=== PATIENT | female | born 1950 | race African-American/Black ===

== ENCOUNTER 2017-01-29 10:22 | Inpatient (IN) | payer OTHER ==
[~2017-01-29] VITALS: Ht 157.5 cm; Wt 68.7 kg
[2017-01-29] MEDS ORDERED: MAGNESIUM 2 G PREMIX 50 ML IV STA (10:28)
[2017-01-29] MEDS ORDERED: IPRATROPIUM BROMIDE (0.02%) 0.5MG/2.5ML NEB HHN STA (10:28)
[2017-01-29] MEDS ORDERED: ALBUTEROL (0.083%) 2.5MG/3ML NEB HHN STA (10:28)
[2017-01-29] MEDS ORDERED: METHYLPREDNISOLONE SOD SUCC 125 MG/2 ML VIAL IV STA (10:28)
[2017-01-29] MEDS ORDERED: FUROSEMIDE 40MG/4ML VIAL IVP ONE (10:30)
[2017-01-29] MEDS ORDERED: LEVOFLOXACIN 500MG PREMIX 100 ML IV ONE (10:30)
[2017-01-29] MEDS ORDERED: ALBUTEROL (0.5%) 2.5MG/0.5ML NEB HHN ONE (10:41)
[2017-01-29] MEDS ORDERED: SODIUM BICARBONATE 4% (2.4MEQ) 5ML VIAL IV ONE (11:00)
[2017-01-29] MEDS ORDERED: LIDOCAINE HCL 1% 20ML VIAL (Pyxis) INJ ONE (11:00)
[2017-01-29 11:18] LABS: BASOPHILS % 0.2 % (0.0-2.0); HEMATOCRIT. 42.4 % (36.0-48.0); HEMOGLOBIN. 13.5 g/dL (12.0-16.0); LYMPHOCYTES % 20.7 % (20.0-50.0); MEAN CORPUSCULAR HEMOGLOBIN 29.7 pg (28.0-32.0); MEAN CORPUSCULAR VOLUME 93.1 fL (81.0-99.0); MEAN PLATELET VOLUME 10.5 fl (7.4-10.4); MONOCYTES % 6.9 % (2.0-8.0); NEUTROPHILS % 71.2 % (40.0-76.0); PLATELET 142 x1000/uL (130-400); RED BLOOD CELL COUNT 4.55 mill/uL (4.2-5.4); RED CELL DISTRIBUTION WIDTH 14.8 % (11.6-14.6)
[2017-01-29 11:25] LABS: PROTHROMBIN TIME 10.7 sec (9.4-11.6)
[2017-01-29 11:34] LABS: CHLORIDE 97 mEq/L (98-107); TROPONIN I < 0.02 ng/mL (0.00-0.04)
[2017-01-29 11:35] LABS: CARBON DIOXIDE 40 mEq/L (21-32)
[2017-01-29] MEDS ORDERED: MAGNESIUM/ALUMINUM HYDROXIDE/SIMETHICONE 30ML UDC PO PRN (11:45)
[2017-01-29] MEDS ORDERED: NA PHOS,M-B/NA PHOS,DI-BA ENEMA 118ML PR PRN (11:45)
[2017-01-29] MEDS ORDERED: ACETAMINOPHEN 325MG TABLET PO PRN (11:45)
[2017-01-29] MEDS ORDERED: ONDANSETRON HCL 4MG/2ML VIAL IV PRN (11:45)
[2017-01-29] MEDS ORDERED: GUAIFENESIN 200MG/10ML SUGAR FREE UDC PO PRN (11:45)
[2017-01-29] MEDS ORDERED: CLONIDINE 0.1MG TABLET PO PRN (11:45)
[2017-01-29] MEDS ORDERED: MORPHINE SULFATE 2 MG/ML CPJ (NOT FOR IM USE) IV PRN (11:45)
[2017-01-29] MEDS ORDERED: IPRATROPIUM/ALBUTEROL 0.5-3(2.5)MG/3ML NEB INH PRN (11:45)
[2017-01-29] MEDS ORDERED: DOCUSATE SODIUM 100MG CAPSULE PO PRN (11:45)
[2017-01-29 15:06] VITALS: BP 114/77
[2017-01-29] MEDS: HYDROCODONE/ACETAMINOPHEN 10/325MG TABLET PO PRN ×2 (15:07→22:22)
[2017-01-29 15:47] LABS: BG BASE EXCESS 11.7 mmol/L (-2.0-2.0); BG CARBOXYHEMOGLOBIN 0.6 % (0.5-1.5); BG DEOXYHEMOGLOBIN 4.3 % (0.0-5.0); BG FRACTION INSPIRED OXYGEN 28; BG METHEMOGLOBIN 0.6 % (0.0-1.5); BG OXYGEN SATURATION 95.6 % (92.0-98.5); BG OXYHEMOGLOBIN 94.5 % (94.0-97.0); BG PCO2 97.1 mmHg (35.0-45.0); BG PH 7.264 (7.350-7.450); BG PO2 85.6 mmHg (75.0-100.0); BG SAMPLE SITE LEFT BRACHIAL; BG TOTAL HEMOGLOBIN 13.7 g/dL (12.0-18.0); BG VENT MODE NASAL CANNULA
[2017-01-29 16:15] VITALS: BP 123/86
[2017-01-29] MEDS ORDERED: LEVOFLOXACIN 500MG PREMIX 100 ML IV SCH (17:00)
[2017-01-29] MEDS: ENOXAPARIN 40MG/0.4ML SYR SUBCUT SCH (17:05)
[2017-01-29 17:25] LABS: CHLORIDE 95 mEq/L (98-107)
[2017-01-29 17:33] LABS: CARBON DIOXIDE 41 mEq/L (21-32)
[2017-01-29 18:15] VITALS: BP 153/107
[2017-01-29 20:00] VITALS: BP 135/78
[2017-01-29] MEDS: IPRATROPIUM/ALBUTEROL 0.5-3(2.5)MG/3ML NEB HHN SCH (20:46)
[2017-01-29] MEDS: BUDESONIDE 0.5MG/2ML NEB HHN SCH (20:46)
[2017-01-29 22:00] VITALS: BP 135/86
[2017-01-29] MEDS: LORAZEPAM 0.5MG TABLET PO PRN (22:08)
[2017-01-30] VITALS (13 sets, daily range): BP systolic 85–136; BP diastolic 55–71
[2017-01-30] MEDS: IPRATROPIUM/ALBUTEROL 0.5-3(2.5)MG/3ML NEB HHN SCH ×6 (00:23→19:59)
[2017-01-30] MEDS: HYDROCODONE/ACETAMINOPHEN 10/325MG TABLET PO PRN ×3 (05:33→21:45)
[2017-01-30 06:41] LABS: BASOPHILS % 0.1 % (0.0-2.0); HEMATOCRIT. 37.3 % (36.0-48.0); LYMPHOCYTES % 8.5 % (20.0-50.0); MEAN CORPUSCULAR HEMOGLOBIN 30.1 pg (28.0-32.0); MEAN CORPUSCULAR VOLUME 93.1 fL (81.0-99.0); MEAN PLATELET VOLUME 10.9 fl (7.4-10.4); MONOCYTES % 9.2 % (2.0-8.0); NEUTROPHILS % 82.2 % (40.0-76.0); PLATELET 140 x1000/uL (130-400); RED BLOOD CELL COUNT 4.01 mill/uL (4.2-5.4); RED CELL DISTRIBUTION WIDTH 14.7 % (11.6-14.6)
[2017-01-30 08:02] LABS: CHLORIDE 92 mEq/L (98-107); HDL CHOLESTEROL 118 mg/dL (40-59); LDL CHOLESTEROL 63 mg/dL (5-100)
[2017-01-30 08:20] LABS: CARBON DIOXIDE 43 mEq/L (21-32)
[2017-01-30] MEDS: BUDESONIDE 0.5MG/2ML NEB HHN SCH (08:29)
[2017-01-30 09:29] LABS: BG BASE EXCESS 10.3 mmol/L (-2.0-2.0); BG CARBOXYHEMOGLOBIN 0.4 % (0.5-1.5); BG DEOXYHEMOGLOBIN 1.9 % (0.0-5.0); BG FRACTION INSPIRED OXYGEN 32; BG HCO3 ACT 39.8 mmol/L (22.0-26.0); BG METHEMOGLOBIN 0.5 % (0.0-1.5); BG OXYGEN SATURATION 98.1 % (92.0-98.5); BG OXYHEMOGLOBIN 97.2 % (94.0-97.0); BG PCO2 81.8 mmHg (35.0-45.0); BG PH 7.305 (7.350-7.450); BG SAMPLE SITE LEFT BRACHIAL; BG TOTAL HEMOGLOBIN 12.6 g/dL (12.0-18.0); BG VENT MODE NASAL CANNULA
[2017-01-30] MEDS: LORAZEPAM 0.5MG TABLET PO PRN ×2 (10:20→21:37)
[2017-01-30 12:55] LABS: BG BASE EXCESS 9.9 mmol/L (-2.0-2.0); BG BILEVEL POS AIRWAY PRESSURE 15/5; BG CARBOXYHEMOGLOBIN 0.3 % (0.5-1.5); BG DEOXYHEMOGLOBIN 3.1 % (0.0-5.0); BG FRACTION INSPIRED OXYGEN 40; BG METHEMOGLOBIN 0.6 % (0.0-1.5); BG OXYGEN SATURATION 96.9 % (92.0-98.5); BG PH 7.353 (7.350-7.450); BG PO2 86.8 mmHg (75.0-100.0); BG SAMPLE SITE RIGHT RADIAL; BG TOTAL HEMOGLOBIN 12.6 g/dL (12.0-18.0); BG VENT MODE MASK - BIPAP; BG VENT RATE 16 set
[2017-01-30] MEDS ORDERED: IBUPROFEN 600MG TABLET PO PRN (14:30)
[2017-01-30] MEDS: METHYLPREDNISOLONE SOD SUCC 40 MG/ML VIAL IV SCH ×2 (14:37→21:36)
[2017-01-30] MEDS ORDERED: SODIUM CHLORIDE 0.9% 500 ML IV NR (15:15)
[2017-01-30] MEDS: LEVOFLOXACIN 500MG PREMIX 100 ML IV SCH (17:31)
[2017-01-30] MEDS: ENOXAPARIN 40MG/0.4ML SYR SUBCUT SCH (17:31)
[2017-01-31] VITALS (11 sets, daily range): BP systolic 91–126; BP diastolic 51–80
[2017-01-31] MEDS: IPRATROPIUM/ALBUTEROL 0.5-3(2.5)MG/3ML NEB HHN SCH ×6 (00:25→20:48)
[2017-01-31] MEDS: LORAZEPAM 0.5MG TABLET PO PRN ×2 (04:32→23:16)
[2017-01-31] MEDS: METHYLPREDNISOLONE SOD SUCC 40 MG/ML VIAL IV SCH ×3 (05:18→21:51)
[2017-01-31] MEDS: HYDROCODONE/ACETAMINOPHEN 10/325MG TABLET PO PRN ×3 (05:53→20:14)
[2017-01-31] MEDS: BUDESONIDE 0.5MG/2ML NEB HHN SCH ×2 (09:01→20:48)
[2017-01-31 11:28] LABS: BG BASE EXCESS 10.3 mmol/L (-2.0-2.0); BG BILEVEL POS AIRWAY PRESSURE ST=16/5; BG CARBOXYHEMOGLOBIN 0.3 % (0.5-1.5); BG DEOXYHEMOGLOBIN 3.1 % (0.0-5.0); BG FRACTION INSPIRED OXYGEN 35; BG HCO3 ACT 37.1 mmol/L (22.0-26.0); BG METHEMOGLOBIN 0.3 % (0.0-1.5); BG OXYGEN SATURATION 96.9 % (92.0-98.5); BG OXYHEMOGLOBIN 96.3 % (94.0-97.0); BG PCO2 59.8 mmHg (35.0-45.0); BG PO2 91.2 mmHg (75.0-100.0); BG PRESSURE SUPPORT 11; BG SAMPLE SITE LEFT BRACHIAL; BG TOTAL HEMOGLOBIN 12.5 g/dL (12.0-18.0); BG VENT MODE MASK - BIPAP; BG VENT RATE 18 set
[2017-01-31] MEDS ORDERED: FENTANYL CITRATE/PF 50MCG/ML 2ML VIAL IV ONE (13:30)
[2017-01-31] MEDS ORDERED: LIDOCAINE HCL 1% 20ML VIAL (Pyxis) INJ ONE (13:59)
[2017-01-31 16:29] LABS: BG BASE EXCESS 10.1 mmol/L (-2.0-2.0); BG BILEVEL POS AIRWAY PRESSURE 15/5; BG CARBOXYHEMOGLOBIN 0.1 % (0.5-1.5); BG FRACTION INSPIRED OXYGEN 35; BG HCO3 ACT 36.8 mmol/L (22.0-26.0); BG METHEMOGLOBIN 0.5 % (0.0-1.5); BG OXYHEMOGLOBIN 94.4 % (94.0-97.0); BG PCO2 58.8 mmHg (35.0-45.0); BG PH 7.414 (7.350-7.450); BG PO2 74.3 mmHg (75.0-100.0); BG SAMPLE SITE RIGHT RADIAL; BG TOTAL HEMOGLOBIN 13.2 g/dL (12.0-18.0); BG VENT MODE MASK - BIPAP; BG VENT RATE 18 set
[2017-01-31] MEDS: ENOXAPARIN 40MG/0.4ML SYR SUBCUT SCH (18:37)
[2017-01-31] MEDS: LEVOFLOXACIN 500MG PREMIX 100 ML IV SCH (18:37)
[2017-02-01] VITALS (11 sets, daily range): BP systolic 104–137; BP diastolic 56–84
[2017-02-01] MEDS: IPRATROPIUM/ALBUTEROL 0.5-3(2.5)MG/3ML NEB HHN SCH ×7 (00:05→20:50)
[2017-02-01] MEDS: HYDROCODONE/ACETAMINOPHEN 10/325MG TABLET PO PRN ×4 (02:27→21:24)
[2017-02-01] MEDS: METHYLPREDNISOLONE SOD SUCC 40 MG/ML VIAL IV SCH ×3 (05:46→21:24)
[2017-02-01 06:12] LABS: CHLORIDE 91 mEq/L (98-107)
[2017-02-01 06:16] LABS: HEMATOCRIT. 34.6 % (36.0-48.0); HEMOGLOBIN. 11.4 g/dL (12.0-16.0); MEAN CORPUSCULAR HEMOGLOBIN 30.1 pg (28.0-32.0); MEAN PLATELET VOLUME 11.7 fl (7.4-10.4); PLATELET 123 x1000/uL (130-400); RED CELL DISTRIBUTION WIDTH 14.1 % (11.6-14.6)
[2017-02-01 06:22] LABS: CARBON DIOXIDE 36 mEq/L (21-32)
[2017-02-01 08:36] LABS: PLATELET ESTIMATE SLIGHTLY DECREASED
[2017-02-01] MEDS: BUDESONIDE 0.5MG/2ML NEB HHN SCH ×2 (09:15→13:08)
[2017-02-01] MEDS: LORAZEPAM 0.5MG TABLET PO PRN (15:13)
[2017-02-01] MEDS: LEVOFLOXACIN 500MG PREMIX 100 ML IV SCH (16:03)
[2017-02-01] MEDS: ENOXAPARIN 40MG/0.4ML SYR SUBCUT SCH (16:04)
[2017-02-02] VITALS (8 sets, daily range): BP systolic 93–132; BP diastolic 49–90
[2017-02-02] MEDS: LORAZEPAM 0.5MG TABLET PO PRN ×4 (00:27→21:09)
[2017-02-02] MEDS: IPRATROPIUM/ALBUTEROL 0.5-3(2.5)MG/3ML NEB HHN SCH ×7 (00:34→23:58)
[2017-02-02] MEDS: METHYLPREDNISOLONE SOD SUCC 40 MG/ML VIAL IV SCH ×3 (06:02→21:07)
[2017-02-02] MEDS: HYDROCODONE/ACETAMINOPHEN 10/325MG TABLET PO PRN ×2 (09:53→22:36)
[2017-02-02 13:21] LABS: CLARITY URINE CLEAR (CLEAR); COLOR URINE YELLOW (YELLOW); KETONES URINE NEGATIVE (NEGATIVE); LEUKOCYTE ESTERASE URINE 1+ (NEGATIVE); NITRITE URINE NEGATIVE (NEGATIVE); OCCULT BLOOD URINE NEGATIVE (NEGATIVE); PH URINE 6.5 (4.5-8.0); PROTEIN URINE NEGATIVE (NEGATIVE); UROBILINOGEN URINE 0.2 E.U./dL (0.2-1.0)
[2017-02-02 15:40] LABS: *AMPHETAMINES SCREEN URINE NEGATIVE (NEGATIVE); *BARBITURATES SCREEN URINE NEGATIVE (NEGATIVE); *BENZODIAZEPINES SCREEN URINE NEGATIVE (NEGATIVE); *COCAINE SCREEN URINE NEGATIVE (NEGATIVE); CANNABINOID URINE SCREEN NEGATIVE (NEGATIVE); METHADONE URINE SCREEN NEGATIVE (NEGATIVE); OPIATES URINE SCREEN PRESUMTIVE POSITIVE (NEGATIVE); PHENCYCLIDINE URINE SCREEN NEGATIVE (NEGATIVE)
[2017-02-02] MEDS: LEVOFLOXACIN 500MG PREMIX 100 ML IV SCH (16:29)
[2017-02-02] MEDS: ENOXAPARIN 40MG/0.4ML SYR SUBCUT SCH (16:29)
[2017-02-02 16:40] LABS: BG BASE EXCESS 6.4 mmol/L (-2.0-2.0); BG CARBOXYHEMOGLOBIN 0.2 % (0.5-1.5); BG DEOXYHEMOGLOBIN 3.6 % (0.0-5.0); BG FRACTION INSPIRED OXYGEN 28; BG HCO3 ACT 31.4 mmol/L (22.0-26.0); BG METHEMOGLOBIN 0.5 % (0.0-1.5); BG OXYGEN SATURATION 96.4 % (92.0-98.5); BG OXYHEMOGLOBIN 95.7 % (94.0-97.0); BG PCO2 46.7 mmHg (35.0-45.0); BG PH 7.446 (7.350-7.450); BG PO2 86.4 mmHg (75.0-100.0); BG SAMPLE SITE RIGHT BRACHIAL; BG TOTAL HEMOGLOBIN 12.8 g/dL (12.0-18.0); BG VENT MODE NASAL CANNULA
[2017-02-03] VITALS (11 sets, daily range): BP systolic 88–140; BP diastolic 57–80
[2017-02-03] MEDS: IPRATROPIUM/ALBUTEROL 0.5-3(2.5)MG/3ML NEB HHN SCH ×6 (05:18→20:58)
[2017-02-03 06:08] LABS: HEMATOCRIT. 35.9 % (36.0-48.0); HEMOGLOBIN. 11.7 g/dL (12.0-16.0); MEAN CORPUSCULAR HEMOGLOBIN 29.9 pg (28.0-32.0); MEAN CORPUSCULAR VOLUME 91.4 fL (81.0-99.0); MEAN PLATELET VOLUME 11.6 fl (7.4-10.4); PLATELET 127 x1000/uL (130-400); RED BLOOD CELL COUNT 3.93 mill/uL (4.2-5.4); RED CELL DISTRIBUTION WIDTH 14.4 % (11.6-14.6)
[2017-02-03] MEDS: METHYLPREDNISOLONE SOD SUCC 40 MG/ML VIAL IV SCH ×2 (06:23→15:01)
[2017-02-03 06:29] LABS: CHLORIDE 96 mEq/L (98-107)
[2017-02-03 06:46] LABS: CARBON DIOXIDE 33 mEq/L (21-32)
[2017-02-03 13:15] LABS: PLATELET ESTIMATE SLIGHTLY DECREASED
[2017-02-03] MEDS: LORAZEPAM 0.5MG TABLET PO PRN (15:10)
[2017-02-03] MEDS ORDERED: HYDROCODONE/ACETAMINOPHEN 10/325MG TABLET PO NR (16:45)
[2017-02-03] MEDS: LEVOFLOXACIN 500MG PREMIX 100 ML IV SCH (16:50)
[2017-02-03] MEDS: ENOXAPARIN 40MG/0.4ML SYR SUBCUT SCH (16:50)
== END 2017-02-03 21:30 | disposition short-term general hospital (02) | DRG 199 ==
LOC: ER 11:16 → 5EST 11:17 → EDBEDREQ 11:20 → ENRESERV 12:23
PROVIDERS: ADMIT Internal Medicine; ATTEND Internal Medicine
PROC: 0W9930Z Drainage of Right Pleural Cavity with Drainage Device, Percutaneous Approach (ICD-10-PCS; 2017-01-29)
PROC: 5A09457 Assistance with Respiratory Ventilation, 24-96 Consecutive Hours, Continuous Positive Airway Pressure (ICD-10-PCS; 2017-01-29)
PROC: 0W9930Z Drainage of Right Pleural Cavity with Drainage Device, Percutaneous Approach (ICD-10-PCS; principal; 2017-01-31)
PROC: 0WP9X3Z Removal of Infusion Device from Right Pleural Cavity, External Approach (ICD-10-PCS; 2017-01-31)
DX: J93.12 Secondary spontaneous pneumothorax (principal); J96.21 Acute and chronic respiratory failure with hypoxia; E87.2 Acidosis; I11.0 Hypertensive heart disease with heart failure; R65.10 Systemic inflammatory response syndrome (SIRS) of non-infectious origin without acute organ dysfunction; I50.9 Heart failure, unspecified; J44.1 Chronic obstructive pulmonary disease with (acute) exacerbation; Z99.81 Dependence on supplemental oxygen; I25.10 Atherosclerotic heart disease of native coronary artery without angina pectoris; D64.9 Anemia, unspecified; C50.911 Malignant neoplasm of unspecified site of right female breast; C50.912 Malignant neoplasm of unspecified site of left female breast; R00.0 Tachycardia, unspecified; Z87.891 Personal history of nicotine dependence; Z90.10 Acquired absence of unspecified breast and nipple
CPT/HCPCS: 36415; 36600; 71010; 80048; 80053; 80061; 80305; 81001; 82375; 82805; 82962; 83605; 83735; 83880; 84439; 84443; 84484; 85025; 85379; 85610; 85730; 87040; 93005; 93306; 94640; 94660; 96374; 96375; 99291; J1650; J1940; J1956; J2270; J2920; J2930; J3010; J3475; J3490; J7040; J7050; J7611; J7620; J7626; A4315

== ENCOUNTER 2018-01-31 07:56 | Inpatient (IN) | payer OTHER ==
[~2018-01-31] VITALS: Ht 154.9 cm; Wt 51.7 kg
[~2018-01-31 07:56] MED LIST: ALBU18HF2 IH; AMLO5TAB4 PO; ATOR80TA PO; FLUT1DIS3 IH; FLUT1DIS6 IH; LISI10TA5 PO; LORA1TAB PO; OCD MT; POLY15DR55 OP; POTA10TA2 PO; ROFL500T PO; TIOT4MIS5 IH; [UNRECOGNIZED DRUG - CODE] PO; [UNRECOGNIZED DRUG - OTHER] BOTHEYE
[2018-01-31] MEDS ORDERED: METHYLPREDNISOLONE SOD SUCC 125 MG/2 ML VIAL IV STA (08:20)
[2018-01-31] MEDS ORDERED: ALBUTEROL (0.083%) 2.5MG/3ML NEB HHN STA ×2 (08:20→13:32)
[2018-01-31] MEDS ORDERED: IPRATROPIUM BROMIDE (0.02%) 0.5MG/2.5ML NEB HHN STA (08:20)
[2018-01-31] MEDS ORDERED: MAGNESIUM 2 G PREMIX 50 ML IV ONE (08:30)
[2018-01-31 09:14] LABS: BASOPHILS % 0.8 % (0.0-2.0); EOSINOPHILS % 6.6 % (0.0-5.0); HEMATOCRIT. 33.1 % (36.0-48.0); HEMOGLOBIN. 10.3 g/dL (12.0-16.0); INR 1.2; MEAN CORPUSCULAR HEMOGLOBIN 29.7 pg (28.0-32.0); MEAN CORPUSCULAR VOLUME 95.5 fL (81.0-99.0); MEAN PLATELET VOLUME 11.2 fl (7.4-10.4); MONOCYTES % 9.2 % (2.0-8.0); NEUTROPHILS % 57.4 % (40.0-76.0); PARTIAL THROMBOPLASTIN TIME 28.7 sec (23.4-31.0); PLATELET 142 x1000/uL (130-400); PROTHROMBIN TIME 12.5 sec (9.1-11.1); RED BLOOD CELL COUNT 3.46 mill/uL (4.2-5.4); RED CELL DISTRIBUTION WIDTH 17.6 % (11.6-14.6)
[2018-01-31 10:06] LABS: BG BASE EXCESS 14.6 mmol/L (-2.0-2.0); BG CARBOXYHEMOGLOBIN 0.4 % (0.5-1.5); BG DEOXYHEMOGLOBIN 7.8 % (0.0-5.0); BG HCO3 ACT 44.2 mmol/L (22.0-26.0); BG METHEMOGLOBIN 0.4 % (0.0-1.5); BG OXYGEN SATURATION 92.1 % (92.0-98.5); BG OXYHEMOGLOBIN 91.4 % (94.0-97.0); BG PCO2 91.4 mmHg (35.0-45.0); BG PH 7.302 (7.350-7.450); BG SAMPLE SITE RIGHT BRACHIAL; BG TOTAL HEMOGLOBIN 10.5 g/dL (12.0-18.0); BG VENT MODE NASAL CANNULA
[2018-01-31 10:18] LABS: CHLORIDE 102 mEq/L (98-107)
[2018-01-31] MEDS ORDERED: FUROSEMIDE 40MG/4ML VIAL IVP ONE (10:45)
[2018-01-31] MEDS ORDERED: NA PHOS,M-B/NA PHOS,DI-BA ENEMA 118ML PR PRN (11:30)
[2018-01-31] MEDS ORDERED: ACETAMINOPHEN 650MG/20.3ML UDC GT PRN (11:30)
[2018-01-31] MEDS ORDERED: CLONIDINE 0.1MG TABLET PO PRN (11:30)
[2018-01-31] MEDS ORDERED: GUAIFENESIN 200MG/10ML SUGAR FREE UDC PO PRN (11:30)
[2018-01-31] MEDS ORDERED: DOCUSATE SODIUM 100MG CAPSULE PO PRN (11:30)
[2018-01-31] MEDS ORDERED: ACETAMINOPHEN 325MG TABLET PO PRN (11:30)
[2018-01-31] MEDS ORDERED: MAGNESIUM/ALUMINUM HYDROXIDE/SIMETHICONE 30ML UDC PO PRN (11:30)
[2018-01-31] MEDS ORDERED: DIPHENHYDRAMINE 50MG/ML VIAL IV PRN (11:30)
[2018-01-31] MEDS ORDERED: IPRATROPIUM/ALBUTEROL 0.5-3(2.5)MG/3ML NEB INH PRN (11:30)
[2018-01-31] MEDS ORDERED: HYDROCODONE/ACETAMINOPHEN 5/325MG TABLET PO PRN (11:30)
[2018-01-31] MEDS ORDERED: ONDANSETRON HCL 4MG/2ML INJ IV PRN (11:30)
[2018-01-31] MEDS ORDERED: ACETAMINOPHEN 650MG SUPP PR PRN (11:30)
[2018-01-31] MEDS ORDERED: ALBUTEROL (0.083%) 2.5MG/3ML NEB ONE (13:38)
[2018-01-31] MEDS ORDERED: ENOXAPARIN 40MG/0.4ML SYR SUBCUT SCH (16:00)
[2018-01-31 16:05] VITALS: BP 138/88
[2018-01-31 16:29] VITALS: BP 125/76
[2018-01-31 17:00] VITALS: BP 121/82
[2018-01-31] MEDS ORDERED: INFLUENZA VIRUS VACCINE(AFLURIA) 0.5ML SYR IM ONE (17:30)
[2018-01-31] MEDS: METHYLPREDNISOLONE SOD SUCC 125 MG/2 ML VIAL IV SCH (17:53)
[2018-01-31] MEDS: ENOXAPARIN 60MG/0.6ML SYR SUBCUT SCH (17:54)
[2018-01-31] MEDS: LEVOFLOXACIN 250MG PREMIX 50 ML IV SCH (17:54)
[2018-01-31 18:00] VITALS: BP 134/87
[2018-01-31 18:34] LABS: CREATINE KINASE MB FRACTION 2.4 ng/mL (0.5-3.6)
[2018-01-31] MEDS ORDERED: IOHEXOL-350 100 ML BOTTLE ONE (19:06)
[2018-01-31 19:47] LABS: CLARITY URINE TURBID (CLEAR); COLOR URINE YELLOW (YELLOW); KETONES URINE NEGATIVE (NEGATIVE); LEUKOCYTE ESTERASE URINE TRACE (NEGATIVE); NITRITE URINE NEGATIVE (NEGATIVE); OCCULT BLOOD URINE NEGATIVE (NEGATIVE); PROTEIN URINE NEGATIVE (NEGATIVE); SPECIFIC GRAVITY URINE 1.013 (1.005-1.030); UROBILINOGEN URINE 0.2 E.U./dL (0.2-1.0)
[2018-01-31 20:00] VITALS: BP 121/80
[2018-01-31 20:07] LABS: METHADONE URINE SCREEN NEGATIVE (NEGATIVE); OPIATES URINE SCREEN NEGATIVE (NEGATIVE)
[2018-01-31 20:08] LABS: *AMPHETAMINES SCREEN URINE NEGATIVE (NEGATIVE); *BARBITURATES SCREEN URINE NEGATIVE (NEGATIVE); *BENZODIAZEPINES SCREEN URINE NEGATIVE (NEGATIVE); *COCAINE SCREEN URINE NEGATIVE (NEGATIVE); CANNABINOID URINE SCREEN NEGATIVE (NEGATIVE); PHENCYCLIDINE URINE SCREEN NEGATIVE (NEGATIVE)
[2018-01-31] MEDS ORDERED: FURO20TA4 MT (20:43)
[2018-01-31] MEDS ORDERED: BENZ100C86 MT (20:43)
[2018-01-31] MEDS: IPRATROPIUM/ALBUTEROL 0.5-3(2.5)MG/3ML NEB INH SCH (20:53)
[2018-01-31] MEDS: SODIUM CHLORIDE 0.9% INJ 3ML FLUSH IVF SCH (21:30)
[2018-01-31 22:00] VITALS: BP 122/83
[2018-02-01] VITALS (10 sets, daily range): BP systolic 111–136; BP diastolic 76–94
[2018-02-01] MEDS: IPRATROPIUM/ALBUTEROL 0.5-3(2.5)MG/3ML NEB INH SCH ×2 (00:48→14:38)
[2018-02-01 01:15] LABS: CREATINE KINASE 59 IU/L (26-192)
[2018-02-01 01:17] LABS: CREATINE KINASE MB FRACTION 2.1 ng/mL (0.5-3.6)
[2018-02-01] MEDS: METHYLPREDNISOLONE SOD SUCC 125 MG/2 ML VIAL IV SCH ×2 (06:51→12:10)
[2018-02-01] MEDS: ENOXAPARIN 60MG/0.6ML SYR SUBCUT SCH ×2 (06:51→17:10)
[2018-02-01] MEDS: SODIUM CHLORIDE 0.9% INJ 3ML FLUSH IVF SCH ×2 (06:52→14:00)
[2018-02-01 07:10] LABS: BASOPHILS % 0.3 % (0.0-2.0); HEMATOCRIT. 31.3 % (36.0-48.0); HEMOGLOBIN. 9.7 g/dL (12.0-16.0); LYMPHOCYTES % 13.7 % (20.0-50.0); MEAN CORPUSCULAR HEMOGLOBIN 29.5 pg (28.0-32.0); MEAN CORPUSCULAR VOLUME 95.1 fL (81.0-99.0); MEAN PLATELET VOLUME 11.3 fl (7.4-10.4); MONOCYTES % 2.2 % (2.0-8.0); NEUTROPHILS % 83.8 % (40.0-76.0); PLATELET 124 x1000/uL (130-400); RED BLOOD CELL COUNT 3.29 mill/uL (4.2-5.4); RED CELL DISTRIBUTION WIDTH 17.4 % (11.6-14.6)
[2018-02-01 07:27] LABS: CHLORIDE 102 mEq/L (98-107)
[2018-02-01 07:38] LABS: LDL CHOLESTEROL 58 mg/dL (5-100)
[2018-02-01 07:39] LABS: HDL CHOLESTEROL 114 mg/dL (40-59)
[2018-02-01] MEDS ORDERED: IPRA3AMP9 INH (13:55)
[2018-02-01] MEDS ORDERED: LISINOPRIL 10MG TABLET PO SCH (14:00)
[2018-02-01] MEDS ORDERED: AMLODIPINE 5MG TABLET PO SCH (14:00)
[2018-02-01] MEDS ORDERED: FUROSEMIDE 20MG TABLET PO SCH (14:00)
[2018-02-01] MEDS ORDERED: POLYVINYL ALCOHOL OPHTH DROPS 15ML BOTHEYE SCH (18:00)
[2018-02-01] MEDS: LEVOFLOXACIN 250MG PREMIX 50 ML IV SCH (18:05)
[2018-02-01] MEDS ORDERED: ATORVASTATIN CALCIUM 40MG TABLET PO SCH (21:00)
[2018-02-01] MEDS ORDERED: METHYLPREDNISOLONE SOD SUCC 125 MG/2 ML VIAL IV SCH (23:00)
== END 2018-02-01 22:20 | disposition short-term general hospital (02) | DRG 189 ==
LOC: ER 08:21 → 5EST 10:35 → EDBEDREQSVC 10:39 → EDBEDREQ 10:39 → CANRESERV 12:28 → ENRESERV 12:28
PROVIDERS: ADMIT Family Medicine; ATTEND Family Medicine
DX: J96.22 Acute and chronic respiratory failure with hypercapnia (principal); J44.1 Chronic obstructive pulmonary disease with (acute) exacerbation; I31.3 Pericardial effusion (noninflammatory); E87.2 Acidosis; J96.21 Acute and chronic respiratory failure with hypoxia; I11.0 Hypertensive heart disease with heart failure; I27.20 Pulmonary hypertension, unspecified; I50.9 Heart failure, unspecified; J98.4 Other disorders of lung; Z85.3 Personal history of malignant neoplasm of breast; Z87.891 Personal history of nicotine dependence; Z88.9 Allergy status to unspecified drugs, medicaments and biological substances; Z90.10 Acquired absence of unspecified breast and nipple; Z99.81 Dependence on supplemental oxygen; Z92.21 Personal history of antineoplastic chemotherapy; Z88.6 Allergy status to analgesic agent; Z88.5 Allergy status to narcotic agent; Z91.013 Allergy to seafood
CPT/HCPCS: 36415; 36600; 71045; 71275; 80061; 80305; 82375; 82550; 82553; 82805; 83880; 84484; 93005; 93306; 93970; 94640; 99285; J1650; J1956; J2930; J3475; J7050; J7611; J7620; Q9967

== ENCOUNTER 2018-12-02 09:05 | Emergency (ER) | payer OTHER ==
[~2018-12-02] VITALS: Ht 167.6 cm; Wt 60.0 kg
[~2018-12-02 09:05] MED LIST changes: +BENZ100C86 MT; +FURO20TA4 MT; +IPRA3AMP9 INH; +POLY15DR31 OP; -POLY15DR55 OP
[2018-12-02] MEDS ORDERED: ALBUTEROL (0.083%) 2.5MG/3ML NEB HHN STA ×2 (09:31→13:43)
[2018-12-02] MEDS ORDERED: METHYLPREDNISOLONE SOD SUCC 125 MG/2 ML VIAL IV STA (09:31)
[2018-12-02] MEDS ORDERED: IPRATROPIUM BROMIDE (0.02%) 0.5MG/2.5ML NEB HHN STA (09:31)
[2018-12-02 10:15] LABS: HEMATOCRIT. 39.5 % (36.0-48.0); HEMOGLOBIN. 12.4 g/dL (12.0-16.0); MEAN CORPUSCULAR HEMOGLOBIN 30.1 pg (28.0-32.0); MEAN CORPUSCULAR VOLUME 95.9 fL (81.0-99.0); MEAN PLATELET VOLUME 10.8 fl (7.4-10.4); PLATELET 108 x1000/uL (130-400); RED BLOOD CELL COUNT 4.12 mill/uL (4.2-5.4); RED CELL DISTRIBUTION WIDTH 15.1 % (11.6-14.6)
[2018-12-02 10:23] LABS: CHLORIDE 90 mEq/L (98-107)
[2018-12-02 11:12] LABS: PLATELET ESTIMATE SLIGHTLY DECREASED
[2018-12-02] MEDS ORDERED: FUROSEMIDE 40MG/4ML VIAL IVP NR (11:15)
[2018-12-02 11:42] LABS: BG BASE EXCESS 23.9 mmol/L (-2.0-2.0); BG DEOXYHEMOGLOBIN 11.3 % (0.0-5.0); BG FRACTION INSPIRED OXYGEN 32; BG HCO3 ACT 59.5 mmol/L (22.0-26.0); BG METHEMOGLOBIN 0.3 % (0.0-1.5); BG OXYGEN SATURATION 88.6 % (92.0-98.5); BG OXYHEMOGLOBIN 87.4 % (94.0-97.0); BG PCO2 159.1 mmHg (35.0-45.0); BG PH 7.191 (7.350-7.450); BG PO2 62.8 mmHg (75.0-100.0); BG SAMPLE SITE RIGHT RADIAL; BG VENT MODE NASAL CANNULA
[2018-12-02 14:15] VITALS: BP 107/66
== END 2018-12-02 14:03 | disposition short-term general hospital (02) ==
LOC: ER 09:05 → CANBEDREQ 20:05
DX: J44.9 Chronic obstructive pulmonary disease, unspecified (principal); I11.0 Hypertensive heart disease with heart failure; I50.9 Heart failure, unspecified; I51.9 Heart disease, unspecified; Z79.899 Other long term (current) drug therapy; Z88.6 Allergy status to analgesic agent; Z91.013 Allergy to seafood
CPT/HCPCS: 36415; 36600; 71045; 80053; 82375; 82805; 83880; 84484; 85025; 93005; 94644; 96374; 96375; 99291; J1940; J2930; J7611

== ENCOUNTER 2021-05-17 11:25 | Emergency (ER) | payer OTHER ==
[~2021-05-17] VITALS: Ht 165.1 cm; Wt 60.0 kg
[~2021-05-17 11:25] MED LIST changes: -ALBU18HF2 IH; -AMLO5TAB4 PO; -ATOR80TA PO; +ATROPINE SULFATE 1MG/10ML SYR ONE; -BENZ100C86 MT; +CALCIUM CHLORIDE 1GM/10ML SYR IV ONE; +CITA10TA16 PO; +DEXTROSE 50% WATER 50ML SYRINGE IV ONE; +EPINEPHRINE 0.1MG/ML (1:10,000) 10ML SYR ONE; -FLUT1DIS3 IH; -FLUT1DIS6 IH; -FURO20TA4 MT; +FURO80TA87 MT; +ISOS10TA2 MT; +LIP40 MT; -LISI10TA5 PO; -LORA1TAB PO; +MAGNESIUM SULFATE 4G IN WATER 100ML PREMIX IV ONE; +MED4 MT; -OCD MT; -POLY15DR31 OP; -ROFL500T PO; +SODIUM BICARBONATE 8.4% 1 MEQ/ML 50ML SYR IV ONE; -TIOT4MIS5 IH; +ZABETA PO; -[UNRECOGNIZED DRUG - CODE] PO; -[UNRECOGNIZED DRUG - OTHER] BOTHEYE
[2021-05-17] MEDS ORDERED: ETOMIDATE 2MG/ML 10ML VIAL IV ONE (12:00)
[2021-05-17] MEDS ORDERED: ROCURONIUM BROMIDE 10MG/ML VIAL 5ML IV ONE (12:00)
[2021-05-17] MEDS ORDERED: PROPOFOL 10MG/ML 100ML 100 ML IV ONE (12:00)
[2021-05-17 12:19] LABS: BASOPHILS % 0.3 % (0.0-2.0); EOSINOPHILS % 2.3 % (0.0-5.0); HEMATOCRIT. 35.1 % (36.0-48.0); HEMOGLOBIN. 10.8 g/dL (12.0-16.0); LYMPHOCYTES % 14.7 % (20.0-50.0); MEAN CORPUSCULAR HEMOGLOBIN 30.3 pg (28.0-32.0); MEAN CORPUSCULAR VOLUME 98.6 fL (81.0-99.0); MEAN PLATELET VOLUME 10.3 fl (7.4-10.4); MONOCYTES % 9.1 % (2.0-8.0); NEUTROPHILS % 73.6 % (40.0-76.0); PLATELET 138 x1000/uL (130-400); RED BLOOD CELL COUNT 3.56 mill/uL (4.2-5.4); RED CELL DISTRIBUTION WIDTH 16.1 % (11.6-14.6)
[2021-05-17 12:20] VITALS: BP 125/48
== END 2021-05-17 16:41 ==
LOC: ER 11:36
DX: I46.9 Cardiac arrest, cause unspecified (principal); J96.00 Acute respiratory failure, unspecified whether with hypoxia or hypercapnia; I11.0 Hypertensive heart disease with heart failure; I50.9 Heart failure, unspecified; Z91.013 Allergy to seafood; Z79.899 Other long term (current) drug therapy
CPT/HCPCS: 31500; 36415; 71045; 83880; 84484; 85025; 92950; 99291; J0461; J2704; J3475; J3490